=== PATIENT | female | born 1955 | race Caucasian/White ===

== ENCOUNTER → 2021-04-14 | Day surgery (SDC) | payer OTHER ==
[~2021-04-14] VITALS: Ht 154.9 cm; Wt 80.4 kg
[~2021-04-14] MED LIST: ACETAMINOPHEN500 M1 PO; ASPIRIN EC81 MG PO; ASPIRIN325 M1 PO; ASPIRIN325 MG PO; BENADRYL25 MG PO; CELEXA20 M1 PO; ESTRACE1 MG PO; HCTZ12.5 MG PO; MELATONIN5 M2 PO; MIRALAX17 GM PO; PERCOCET 5-3251 EACH PO; PRAVACHOL40 MG PO; PRINIVIL10 MG PO; SENNA8.6 MG PO; TYLENOL PM EX-1 EACH PO; VITAMIN D31250 MCG PO
[2021-04-14 07:47] LABS: HCT 43.1 % (37.0-47.0); HGB 14.5 g/dl (12.5-16.0); MCHC 33.6 g/dL (32.0-36.0); MCV 92.3 fL (78.0-100.0); RBC 4.67 M/uL (4.20-5.40); RDW 13.7 % (11.5-14.0); WBC 8.1 K/uL (4.0-10.5)
[2021-04-14 08:27] LABS: BILIRUBIN - TOTAL 0.7 mg/dL (0.2-1.0); BUN/CREAT RATIO (CALC) 17.4 RATIO; CREATININE 0.69 mg/dL (0.51-0.95); GLOBULIN (CALCULATION) 3.8 g/dL; POTASSIUM 3.7 mmol/L (3.5-5.1); TOTAL PROTEIN 7.8 g/dL (6.4-8.2)
== END | disposition home or self-care (01) ==
LOC: FAS 06:49
PROVIDERS: Surgery
DX: Z12.11 Encounter for screening for malignant neoplasm of colon (principal); K21.9 Gastro-esophageal reflux disease without esophagitis; J30.9 Allergic rhinitis, unspecified; I10 Essential (primary) hypertension; E78.00 Pure hypercholesterolemia, unspecified; Z80.0 Family history of malignant neoplasm of digestive organs; Z87.891 Personal history of nicotine dependence; Z79.82 Long term (current) use of aspirin; Z79.899 Other long term (current) drug therapy
CPT/HCPCS: 36415; 80053; J2704; J7120